=== PATIENT | male | born 1995 | race Caucasian/White ===

== ENCOUNTER → 2016-10-04 | Outpatient (CLI) | payer OTHER ==
--- NOTE | 2016-10-04 15:49 | DIAGNOSTIC IMAGING REPORT ---
LEFT TIBIA AND FIBULA 4 VIEWS CLINICAL HISTORY: Left leg pain. Stress fracture. FINDINGS: AP, lateral, internally rotated, and externally rotated views of the left tibia and fibula are compared to study dated 09/04/2016. The skeletal structures are well mineralized. Minimal transverse lucency and sclerosis with associated cortical thickening is again seen involving medial aspect of the proximal metadiaphysis of the left tibia. The appearance remains consistent with a stress fracture. The degree of lucency has minimally improved from 09/04/2016. The fibula is normal in appearance. The knee and ankle joints are grossly maintained. The overlying soft tissues are within normal limits. IMPRESSION: Slight interval improvement in the appearance of a stress fracture of the proximal tibia as compared to 09/04/2016. Electronically signed by: Jamie Alvarado M.D. 10/04/2016 3:47 PM Dictated Date/Time: 10/04/2016 3:45 PM
== END | disposition home or self-care (01) ==
LOC: C.RDSM 15:52
PROVIDERS: ATTEND Internal Medicine
DX: F43.0 Acute stress reaction (principal); M84.362A Stress fracture, left tibia, initial encounter for fracture; X58.XXXA Exposure to other specified factors, initial encounter

== ENCOUNTER → 2017-01-14 | Outpatient (CLI) | payer OTHER ==
--- NOTE | 2017-01-14 11:22 | DIAGNOSTIC IMAGING REPORT ---
FACIAL BONES MIN 3 VIEWS CLINICAL HISTORY: Facial pain status post trauma COMPARISON STUDY: No previous studies for comparison. FINDINGS: There is no orbital emphysema. There is mild left maxillary sinus mucosal thickening. No fractures are visualized on conventional radiographic imaging. IMPRESSION: No fractures identified. Electronically signed by: Lorenzo Wing M.D. 01/14/2017 11:20 AM Dictated Date/Time: 01/14/2017 11:19 AM
== END ==
LOC: C.RDSM 14:20
PROVIDERS: ATTEND Internal Medicine
DX: S00.83XA Contusion of other part of head, initial encounter (principal); X58.XXXA Exposure to other specified factors, initial encounter

== ENCOUNTER → 2017-01-16 | Outpatient (CLI) | payer OTHER ==
--- NOTE | 2017-01-16 21:05 | DIAGNOSTIC IMAGING REPORT ---
RIGHT ANKLE MRI HISTORY: RT ANKLE PAIN Right TECHNIQUE: Multiplanar multisequence MRI of the right ankle was performed without the use of intravenous contrast. COMPARISON STUDY: None. FINDINGS: No fracture or dislocation within the right ankle. Normal marrow signal intensity seen within the visualized osseous structures. No significant joint effusion. Cartilage spaces are maintained. The flexor, extensor, and peroneal tendons are intact. The medial and lateral stabilizing ligaments are intact. The plantar fascia is within normal limits. Trace edema surrounding the Achilles tendon. The Achilles tendon is normal in caliber and signal intensity. There is also mild edema within the pre-Achilles fat pad. IMPRESSION: Trace edema surrounding the Achilles tendon with mild edema within the pre-Achilles fat-pad. This is consistent with a mild paratenonitis. The Achilles tendon itself is within normal limits. Electronically signed by: Senthil Swain M.D. 01/16/2017 9:02 PM Dictated Date/Time: 01/16/2017 8:56 PM
== END | disposition home or self-care (01) ==
LOC: C.MRI 20:05
PROVIDERS: ATTEND Internal Medicine
DX: M76.61 Achilles tendinitis, right leg (principal)

== ENCOUNTER → 2017-06-17 | Outpatient (CLI) | payer OTHER ==
--- NOTE | 2017-06-17 15:22 | DIAGNOSTIC IMAGING REPORT ---
L KNEE 4 OR MORE CLINICAL HISTORY: LEFT KNEE PAIN pain COMPARISON: None. DISCUSSION: The bones and joint spaces appear intact. There is no evidence of fracture, dislocation or bony disease. There is no evidence for soft tissue swelling. IMPRESSION: Negative study. The above report was generated using voice recognition software. It may contain grammatical, syntax or spelling errors. Electronically signed by: Ash Montes M.D. 06/17/2017 3:21 PM Dictated Date/Time: 06/17/2017 3:20 PM
== END | disposition home or self-care (01) ==
LOC: C.RDSM 14:27
PROVIDERS: ATTEND Internal Medicine
DX: M77.50 Other enthesopathy of unspecified foot and ankle (principal)

== ENCOUNTER → 2017-06-24 | Outpatient (CLI) | payer OTHER ==
--- NOTE | 2017-06-24 13:05 | DIAGNOSTIC IMAGING REPORT ---
LEFT KNEE MRI HISTORY: LEFT KNEE PAIN COMPARISON STUDY: Left knee MRI 08/06/2016. TECHNIQUE: Multiplanar multisequence MRI of the left knee was performed according to standard department protocol without the use of contrast. FINDINGS: Menisci: Small horizontal tear at the body of the medial meniscus best seen on coronal image 17. The lateral meniscus is intact. Ligaments: The anterior and posterior cruciate ligaments are intact. The medial and lateral collateral ligaments are normal in appearance. Extensor mechanism: The quadriceps tendon and patellar ligament are intact. Articular cartilage and bone: Minimal subchondral marrow edema within the medial femoral condyle. No fracture or dislocation. Cartilage spaces are maintained. Joint effusion: None. Soft tissues: Tiny subcentimeter popliteal cyst. IMPRESSION: Small horizontal tear within the body of the medial meniscus. Electronically signed by: Senthil Swain M.D. 06/24/2017 1:03 PM Dictated Date/Time: 06/24/2017 12:55 PM
== END | disposition home or self-care (01) ==
LOC: C.MRI 08:58
PROVIDERS: ATTEND Internal Medicine
DX: M77.52 Other enthesopathy of left foot and ankle (principal); S83.242A Other tear of medial meniscus, current injury, left knee, initial encounter; X58.XXXA Exposure to other specified factors, initial encounter

== ENCOUNTER → 2018-01-23 | Outpatient (CLI) | payer OTHER ==
--- NOTE | 2018-01-23 14:00 | DIAGNOSTIC IMAGING REPORT ---
LEFT KNEE 4 VIEWS CLINICAL HISTORY: Left knee pain. FINDINGS: AP, lateral, tunnel, and sunrise views of the left knee are compared to studies dated 06/17/2017 and 06/04/2016. Correlation is made with MRI of the left knee dated 06/24/2017. The skeletal structures are well mineralized. There is cortical thickening and sclerosis along the medial aspect of the proximal tibial metadiaphysis. This is consistent with an age indeterminant stress reaction/fracture. No additional fracture is identified. The joint spaces are well-maintained. There is no evidence of osteochondral lesion on the tunnel image. There is no joint effusion. The overlying soft tissues are within normal limits. IMPRESSION: 1. Again seen is cortical thickening and sclerosis involving the medial aspect of the proximal tibial metadiaphysis. This is consistent with age indeterminant stress reaction/fracture, and has been seen on prior examinations. 2. No additional findings are concerning for acute fracture. Electronically signed by: Jamie Alvarado M.D. 01/23/2018 1:58 PM Dictated Date/Time: 01/23/2018 1:55 PM
== END | disposition home or self-care (01) ==
LOC: C.RDSM 13:32
PROVIDERS: ATTEND Internal Medicine
DX: Z02.5 Encounter for examination for participation in sport (principal)